=== PATIENT | female | born 1960 | race Hispanic/Latino ===

== ENCOUNTER 2022-06-29 10:33 | Emergency (ER) | payer OTHER ==
[~2022-06-29] VITALS: Ht 162.6 cm; Wt 114.3 kg
[~2022-06-29 10:33] MED LIST: ALBUTEROL1.25 MG/3 NEB
[2022-06-29] MEDS ORDERED: KETOROLAC TROMETHAMINE 60 MG/2 ML VIAL IM ONE (11:00)
[2022-06-29] MEDS ORDERED: METHOCARBAMOL500 MG PO ×2 (14:14→14:22)
[2022-06-29] MEDS ORDERED: CELEBREX100 MG PO ×2 (14:14→14:22)
== END 2022-06-29 14:36 | disposition home or self-care (01) ==
LOC: ER 10:44 → MERGE 10:44 → ER 14:36
DX: R07.89 Other chest pain (principal); M25.512 Pain in left shoulder; W01.0XXA Fall on same level from slipping, tripping and stumbling without subsequent striking against object, initial encounter; Y93.01 Activity, walking, marching and hiking; Y92.89 Other specified places as the place of occurrence of the external cause; E11.9 Type 2 diabetes mellitus without complications
CPT/HCPCS: 71101; 73030; 93005; 99283; J1885

== ENCOUNTER 2024-06-16 11:14 | Emergency (ER) | payer BC, OTHER ==
[~2024-06-16] VITALS: Ht 162.6 cm; Wt 102.1 kg
[~2024-06-16 11:14] MED LIST changes: +CEFDINIR300 MG PO; +CELEBREX100 MG PO; +METHOCARBAMOL500 MG PO; +ONDANSETRON ODT4 MG SL; +PREDNISONE20 MG PO; +PYRIDIUM200 MG PO; +TEARS LUBRICANT15 ML OD; +VALTREX1000 MG PO
[2024-06-16] MEDS ORDERED: VALTREX1000 MG PO (14:41)
[2024-06-16 14:43] VITALS: PULSE 87; RESP 18; TEMP 97.9; O2SAT 100
== END 2024-06-16 14:54 | disposition home or self-care (01) ==
LOC: ER 11:27
DX: G51.0 Bell's palsy (principal); E11.9 Type 2 diabetes mellitus without complications
CPT/HCPCS: 70450; 99283

== ENCOUNTER → 2024-10-15 | Day surgery (SDC) | payer BC, OTHER ==
[~2024-10-15] MED LIST changes: +FENTANYL CITRATE/PF 100MCG/2 ML INJ ONE; +GINGER PO; +HYOSCYAMINE SULFATE 0.5 MG/ML INJ ONE; +LIDOCAINE HCL 2% LOCAL INJ 5 ML SDV VIAL INJ ONE; +MIDAZOLAM HCL 2 MG/2 ML VIAL ONE; +PROPOFOL IV EMULSION 50 ML IV ONE; +TUMERIC PO; +ZESTRIL2.5 MG PO; +ZYRTEC10 MG PO; +humalog SC
[2024-10-15] MEDS: LACTATED RINGER'S 1,000 ML ONE (09:46)
[2024-10-15 13:05] VITALS: BP 132/78; PULSE 83; RESP 16; TEMP 97.4; O2SAT 98
== END | disposition home or self-care (01) ==
LOC: OR 09:31
PROVIDERS: ATTEND Internal Medicine Gastroenterology
DX: K29.50 Unspecified chronic gastritis without bleeding (principal); D12.2 Benign neoplasm of ascending colon; D12.4 Benign neoplasm of descending colon; D12.8 Benign neoplasm of rectum; K29.80 Duodenitis without bleeding; K20.90 Esophagitis, unspecified without bleeding; K31.89 Other diseases of stomach and duodenum; K64.8 Other hemorrhoids; Z71.3 Dietary counseling and surveillance; E11.9 Type 2 diabetes mellitus without complications; I10 Essential (primary) hypertension; Z71.89 Other specified counseling; E78.00 Pure hypercholesterolemia, unspecified; E66.9 Obesity, unspecified; Z01.810 Encounter for preprocedural cardiovascular examination; Z79.4 Long term (current) use of insulin; Z79.899 Other long term (current) drug therapy; Z68.37 Body mass index [BMI] 37.0-37.9, adult; Z86.16 Personal history of COVID-19
CPT/HCPCS: 43239; 45380; 45385; 93005; J1980; J2003; J2250; J2470; J2704; J3010; J7121; 45378